=== PATIENT | male | born 1985 | race Hispanic/Latino ===

== ENCOUNTER 2022-09-06 21:55 | Emergency (ER) | payer SELFPAY ==
--- OUTSIDE RECORDS SUMMARY | 2022-09-06 21:58 | XMS REPORT | Continuity of Care Document ---
:1985 Author Organization [facility] t Address [address] [place] [address] Care Team Providers Name Role Phone Lab, [facility] Fam Pob I Attending Clinician Unavailable Shira Omer Attending Clinician SHIRA LIRIANO Attending Clinician Unavailable Problems This patient has no known problems. Allergies, Adverse Reactions, Alerts Allergy Allergy Status Severity Reaction(s) Onset Inactive Treating Comm ents Source Name Type Date Date Clinician NO KNOWN Drug Active [facility] ALLERGIE Class ity [facility] Social History Social Habit Start Date Stop Date Quantity Comments Source [facility] to [facility] Smoking Status Start Date Stop Date Source Unknown if ever [facility] Medications This patient has no known medications. Procedures This patient has no known procedures. Encounters Start End Encounter Admission Attending Care Care Encounter Source Date/Time Date/Time Type Type Clinicians Facility Department ID 2020-03-19 2020-03-19 Laboratory Lab, [facility] Fam Pob I [facility] [id number] Univers 13:14:38 13:34:38 Only Shira Liriano [facility] [id number] [facility] [id number] Jayme as Professio [phone] De dical nal [address] 2020-03-19 2020-03-19 Outpatient R AROLDO [facility] [id number] Univers 13:00:00 13:00:00 SHIRA france [facility] Results This patient has no known results.
[2022-09-06] MEDS ORDERED: NA CHLORIDE 0.9% 1,000 ML ONE (22:22)
[2022-09-06 22:41] LABS: Hematocrit 41.1 % (39.6-49.0); Lymphocytes % 35.6 % (15.3-44.8); MCV 92.6 fL (80-100); RBC Red Blood Cell Count 4.44 M/uL (4.33-5.43)
[2022-09-06 22:55] LABS: Albumin 3.9 g/dL (3.4-5.0); Bilirubin Total 0.2 mg/dL (0.2-1.0); Magnesium 1.8 mg/dL (1.6-2.4); Protein, Total 6.9 g/dL (6.4-8.2); Troponin High Sensitivity 6.2 pg/mL (<58.9)
[2022-09-06] MEDS ORDERED: POTASSIUM CL SA 10 MEQ TAB PO ONE (23:10)
--- NOTE | 2022-09-06 23:27 | ER ---
Nurse's Notes [facility] Name: Guru Lubin Age: 37 yrs Sex: Male : 1985 Arrival Date: 09/06/2022 Time: 21:56 Bed 4 Private MD: Diagnosis: Episodic lightheadedness;Hypokalemia Presentation: 09/06 22:01 Chief complaint: Patient states: WAS OUTSIDE HITTING GOLF BALLS IN HIS BACKYARD AND jj7 JUST STARTED FEELING DIZZY, LIGHT HEADED AND SHAKY. TACHYCARDIA. THINKS HIS BLOOD SUGAR MIGHT BE LOW. Coronavirus screen: At this time, the client does not indicate any symptoms associated with coronavirus-19. Ebola Screen: No symptoms or risks identified at this time. Initial Sepsis Screen: Does the patient meet any 2 criteria? HR > 90 bpm. No. Patient's initial sepsis screen is negative. Does the patient have a suspected source of infection? No. Patient's initial sepsis screen is negative. Risk Assessment: Do you want to hurt yourself or someone else? Patient reports no desire to harm self or others. Onset of symptoms. Onset of symptoms was September 06, 2022. 22:01 Method Of Arrival: Ambulatory [facility] 22:01 Acuity: NADIA 3 jj7 Triage Assessment: 22:06 General: Appears in no apparent distress. comfortable, Behavior is calm, cooperative, jj7 appropriate for age. Pain: Denies pain. Neuro: Reports dizziness, SHAKINESS. Historical: - Allergies: 22:06 No Known Allergies; jj7 - PMHx: 22:06 None; jj7 - PSHx: 22:06 None; jj7 - Social history:: Smoking status: Patient denies any tobacco usage or history of. Patient uses alcohol, occasionally. WEED, Patient/guardian denies using. Screenin:25 [facility] ED Fall Risk Assessment (Adult) History of falling in the last 3 months, kd3 including since admission No falls in past 3 months (0 pts) Confusion or Disorientation No (0 pts) Intoxicated or Sedated No (0 pts) Impaired Gait No (0 pts) Mobility Assist Device Used No (0 pt) Altered Elimination No (0 pt) Score/Fall Risk Level 0 - 2 = Low Risk. Humpty Dumpty Scale Fall Assessment Tool (age< 18yrs) Age 13 years and above (1 pt) Gender Male (2 pts) Diagnosis Other diagnosis (1 pt) Cognitive Impairments Oriented to own ability (1 pt) Environmental Factors Patient placed in bed (2 pts) Response to Surgery/Sedation/Anesthesia More than 48 hours/ None (1 pt) Medication Usage Other medications/ None (1 pt) Fall Risk Score/ Level Low Fall Risk: </= 11 points. Abuse screen: Denies threats or abuse. Denies injuries from another. Nutritional screening: No deficits noted. Tuberculosis screening: No symptoms or risk factors identified. Fall Risk No fall in past 12 months (0 pts). No secondary diagnosis (0 pts). IV access (20 points). Ambulatory Aid- None/Bed Rest/Nurse Assist (0 pts). Gait- Normal/Bed Rest/Wheelchair (0 pts) Mental Status- Oriented to own ability (0 pts). Total Hill Fall Scale indicates No Risk (0-24 pts). Assessment: 22:24 General: Appears in no apparent distress. Behavior is calm, cooperative. Neuro: Level kd3 of Consciousness is awake, alert, obeys commands, Oriented to person, place, time, situation. Cardiovascular: Capillary refill < 3 seconds in bilateral fingers Patient's skin is warm and dry. Rhythm is sinus rhythm. Respiratory: Airway is patent Trachea midline Respiratory effort is even, unlabored, Respiratory pattern is regular, symmetrical. 22:42 Reassessment: No changes from previously documented assessment. Patient and/or family kd3 updated on plan of care and expected duration. Pain level reassessed. Patient is alert, oriented x 3, equal unlabored respirations, skin warm/dry/pink. 23:41 Reassessment: Patient appears in no apparent distress at this time. Patient and/or jb4 family updated on plan of care and expected duration. Pain level reassessed. Patient is alert, oriented x 3, equal unlabored respirations, skin warm/dry/pink. Vital Signs: 22:01 BP 142 / 92; Pulse 105; Resp 20; Temp 98.7; Pulse Ox 99% ; Weight 89.36 kg; Height 5 jj7 ft. 11 in. (180.34 cm); Pain 0/10; 22:18 BP 119 / 77 LA Supine (auto/); Pulse 95; Resp 18; Pulse Ox 100% on R/A; jb4 22:19 BP 128 / 80 LA Sitting (auto/); Pulse 93; Resp 18; Pulse Ox 100% on R/A; jb4 22:20 BP 130 / 80 LA Standing (auto/); Pulse 90; Resp 18; Pulse Ox 100% on R/A; jb4 22:42 BP 119 / 90; Pulse 92; Resp 19; Pulse Ox 99% on R/A; kd3 23:30 BP 108 / 69; Pulse 86; Resp 16; Pulse Ox 99% on R/A; jb4 22:01 Body Mass Index 27.48 (89.36 kg, 180.34 cm) jj7 ED Course: 21:56 Patient arrived in ED. jj6 22:06 Triage completed. jj7 22:06 Arm band placed on right wrist. jj7 22:08 Fay Duran MD is Attending Physician. sd2 22:21 Ursula Coelho, RN is Primary Nurse. kd3 22:23 Troponin High Sensitivity Sent. kd3 22:23 Magnesium Sent. kd3 22:23 CBC with Diff Sent. kd3 22:23 CMP Sent. kd3 22:24 Inserted saline lock: 18 gauge in right antecubital area, using aseptic technique. kd3 Blood collected. 22:25 Patient has correct armband on for positive identification. Placed in gown. Bed in low kd3 position. Call light in reach. Client placed on continuous cardiac and pulse oximetry monitoring. NIBP monitoring applied. linux engineer on. 22:25 No provider procedures requiring assistance completed. kd3 22:54 XRAY Chest (1 view) In Process Unspecified. EDMS 23:42 IV discontinued, intact, bleeding controlled, No redness/swelling at site. Pressure jb4 dressing applied. Administered Medications: 22:28 Drug: NS 0.9% 1000 ml Route: IV; Rate: 1 bolus; Site: right antecubital; jb4 23:15 Follow up: Response: No adverse reaction; IV Status: Completed infusion; IV Intake: jb4 1000ml 23:10 Drug: Potassium Chloride 40 mEq Route: PO; jb4 23:44 Follow up: Response: No adverse reaction jb4 Medication: 22:25 VIS not applicable for this client. kd3 Intake: 23:15 IV: 1000ml; Total: 1000ml. jb4 Outcome: 23:27 Discharge ordered by . sd2 23:42 Discharged to home ambulatory, with family. jb4 23:42 Condition: stable 23:42 Discharge instructions given to patient, Instructed on discharge instructions, follow up and referral plans. Demonstrated understanding of instructions, follow-up care. 23:44 Patient left the ED. jb4 Signatures: Dispatcher [employer] EDMS Manny Briones, RN RN jb4 Ana Flanagna jj6 Ursula Coelho RN RN kd3 Fay Duran MD MD sd2 Jayden Yu RN RN jj7
--- NOTE | 2022-09-06 23:27 | EDPHYS ---
Physician Documentation [facility] Name: Guru Lubin Age: 37 yrs Sex: Male : 1985 Arrival Date: 09/06/2022 Time: 21:56 Bed 4 Private MD: ED Physician Fay Duran HPI: 09/06 22:18 This 37 yrs old Male presents to ER via Ambulatory with complaints of sd2 Electrocution, Dizziness, Irregular Pulse. 22:18 37 yo M presents with CC of lightheadedness and dizziness that started this evening sd2 while he was outside swinging a golf club and hitting balls. Reports he thought his blood sugar might be low because he quit eating sugar back in January and ate something but did not feel any better. States it felt different than his normal anxiety but his chest felt tight and he had some numbness and tingling in his hands and "I just feel off." Denies any fever or recent illness. States his hydration has not been as good as it should be recently as well. Denies associated nausea, vomiting or diaphoresis. No prior cardiac history. Non-smoker. Pt did report to triage that he said he was electrocuted but this did not actually occur. He states he said this so that he could be brought back from triage quicker. . Historical: - Allergies: 22:06 No Known Allergies; jj7 - PMHx: 22:06 None; jj7 - PSHx: 22:06 None; jj7 - Social history:: Smoking status: Patient denies any tobacco usage or history of. Patient uses alcohol, occasionally. WEED, Patient/guardian denies using. ROS: 22:18 Constitutional: Negative for fever, chills, and weight loss, Eyes: Negative for injury, sd2 pain, redness, and discharge, Cardiovascular: Negative for chest pain, palpitations, and edema, Positive for chest tightness Respiratory: Negative for shortness of breath, cough, wheezing. Abdomen/GI: Negative for abdominal pain, nausea, vomiting, diarrhea. MS/Extremity: Negative for injury and deformity, Skin: Negative for injury, rash, and discoloration, Neuro: Negative for headache, Positive for numbness and tingling. Exam: 22:18 Constitutional: This is a well developed, well nourished patient who is awake, alert, sd2 and in no acute distress. Head/Face: Normocephalic, atraumatic. Eyes: EOMI, normal conjunctiva bilaterally Chest/axilla: Normal chest wall appearance and motion. Nontender with no deformity. Cardiovascular: Regular rate and rhythm with a normal S1 and S2. No gallops, murmurs, or rubs. 2+ distal pulses. Respiratory: Lungs have equal breath sounds bilaterally, clear to auscultation and percussion. No rales, rhonchi or wheezes noted. No increased work of breathing, no retractions or nasal flaring. Abdomen/GI: Soft, non-tender, with normal bowel sounds. No guarding or rebound. No evidence of tenderness throughout. Skin: Warm, dry with normal turgor. Normal color with no rashes, no lesions, and no evidence of cellulitis. MS/ Extremity: Pulses equal, no cyanosis. Neurovascular intact. Full, normal range of motion. Ambulatory without difficulty. Psych: Awake, alert, with orientation to person, place and time. Behavior, mood, and affect are within normal limits. 22:18 ECG was reviewed by the Attending Physician. NSR with sinus arrhythmia, rate 94, no sd2 STEMI criteria Vital Signs: 22:01 BP 142 / 92; Pulse 105; Resp 20; Temp 98.7; Pulse Ox 99% ; Weight 89.36 kg; Height 5 j7 ft. 11 in. (180.34 cm); Pain 0/10; 22:18 BP 119 / 77 LA Supine (auto/); Pulse 95; Resp 18; Pulse Ox 100% on R/A; jb4 22:19 BP 128 / 80 LA Sitting (auto/); Pulse 93; Resp 18; Pulse Ox 100% on R/A; jb4 22:20 BP 130 / 80 LA Standing (auto/); Pulse 90; Resp 18; Pulse Ox 100% on R/A; jb4 22:42 BP 119 / 90; Pulse 92; Resp 19; Pulse Ox 99% on R/A; kd3 23:30 BP 108 / 69; Pulse 86; Resp 16; Pulse Ox 99% on R/A; jb4 22:01 Body Mass Index 27.48 (89.36 kg, 180.34 cm) [facility] MDM: 22:17 Patient medically screened. sd2 22:18 Differential diagnosis: Differential diagnosis includes but is not limited to: ACS, sd2 DVT/PE, pneumothorax, dissection, musculoskeletal, anxiety, anemia, electrolyte abnormality, pneumonia, CHF, COPD among others. Data reviewed: vital signs, nurses notes. 23:24 Data reviewed: lab test result(s), EKG, radiologic studies. Counseling: I had a sd2 detailed discussion with the patient and/or guardian regarding: the historical points, exam findings, and any diagnostic results supporting the discharge/admit diagnosis, lab results, radiology results, the need for outpatient follow up, to return to the emergency department if symptoms worsen or persist or if there are any questions or concerns that arise at home. Medical screen evaluation completed. EMTALA emergency medical condition absent. ED course: Labs and imaging reviewed. Hypokalemia present and replaced orally. Otherwise grossly WNCL. Trop neg. EKG with no ischemic changes. CXR with no acute process. No events noted on telemetry throughout stay. HR and VS improved. Pt resting comfortably. Possibly anxiety. Discussed results with patient and at BS. Verbalizes understanding of strict return precautions and is comfortable with treatment plan at this time.. 09/06 22:18 Order name: CBC with Diff; Complete Time: 22:58 sd2 09/06 22:18 Order name: CMP; Complete Time: 22:58 sd2 09/06 22:18 Order name: Magnesium; Complete Time: 22:58 sd2 09/06 22:18 Order name: Troponin High Sensitivity; Complete Time: 22:58 sd2 09/06 22:18 Order name: XRAY Chest (1 view) sd2 09/06 22:18 Order name: EKG - Nurse/Tech; Complete Time: 22:19 sd2 09/06 22:18 Order name: Orthostatics; Complete Time: 22:28 sd2 Administered Medications: 22:28 Drug: NS 0.9% 1000 ml Route: IV; Rate: 1 bolus; Site: right antecubital; jb4 23:15 Follow up: Response: No adverse reaction; IV Status: Completed infusion; IV Intake: jb4 1000ml 23:10 Drug: Potassium Chloride 40 mEq Route: PO; jb4 23:44 Follow up: Response: No adverse reaction jb4 Disposition Summary: 09/06/22 23:27 Discharge Ordered Location: Home sd2 Problem: new sd2 Symptoms: have improved sd2 Condition: Stable sd2 Diagnosis - Episodic lightheadedness sd2 - Hypokalemia sd2 Followup: sd2 - With: Private Physician - When: 2 - 3 days - Reason: Recheck today's complaints, Continuance of care, Re-evaluation by your physician Discharge Instructions: - Discharge Summary Sheet sd2 - Dizziness sd2 - Hypokalemia sd2 Forms: - Medication Reconciliation Form sd2 - Thank You Letter sd2 - Antibiotic Education sd2 - Prescription Opioid Use sd2 Signatures: Dispatcher [employer] EDManny Byers, RN RN jb4 Fay Duran MD MD sd2 Jayden Yu RN RN jj7 Corrections: (The following items were deleted from the chart) 22:23 22:18 37 yo M presents with CC of lightheadedness and dizziness that started this sd2 evening while he was outside swinging a golf club and hitting balls. Reports he thought his blood sugar might be low because he quit eating sugar back in January and ate something but did not feel any better. States it felt different than his normal anxiety but his chest felt tight and he had some numbness and tingling in his hands and "I just feel off." Denies any fever or recent illness. States his hydration has not been as good as it should be recently as well. Denies associated nausea, vomiting or diaphoresis. No prior cardiac history. Non-smoker.. sd2
[2022-09-07 00:39] VITALS: TEMP 98.7
[2022-09-07 00:43] VITALS: O2SAT 99
[2022-09-07 00:44] VITALS: BP 108/69
--- NOTE | 2022-09-07 11:00 | RAD REPORT ---
EXAM DESCRIPTION: Single view AP chest radiograph(s) CLINICAL HISTORY: CHEST PAIN. COMPARISON: None. TECHNIQUE: Single view AP chest radiograph(s). FINDINGS: The lungs are clear. No pulmonary infiltrate or edema identified. No pleural effusion. N o pneumothorax. Nonenlarged cardiomediastinal silhouette. No significant osseous abnormality. IMPRESSION: No acute cardiopulmonary abnormality identified by radiograph. Electronically signed by: Jaci Garvey MD 09/06/2022 11:05 PM [employer]SEM[employer]ER Due to temporary technical issues with the PACS/Fluency reporting system, reports are being signed by the in house radiologists without review as a courtesy to insure prompt reporting. The interpreting radiologist is fully responsible for the content of the report.
--- NOTE | 2022-09-07 13:59 | EKG ---
Test Date: 2022-09-06 Test Time: 22:14:30 Apprentice Carpenter: CASTILLO MEASUREMENT RESULTS: Intervals: Rate: 94 PA: 192 QRSD: 116 QT: 340 QTc: 425 [place]: P: 49 PA: 192 QRS: 89 T: 61 INTERPRETIVE STATEMENTS: Normal sinus rhythm with sinus arrhythmia Normal ECG No previous ECG available for comparison Electronically Signed On 09-07-22 13:58:26 PAVING INSPECTOR by Jesus Duke
== END 2022-09-06 23:44 | disposition home or self-care (01) ==
LOC: ER 21:55
DX: E87.6 Hypokalemia (principal)
CPT/HCPCS: 36415; 71045; 80053; 83735; 84484; 85025; 93005; 96360; 99284; J7030

== ENCOUNTER 2023-12-07 12:27 | Observation (INO) | payer SELFPAY ==
--- OUTSIDE RECORDS SUMMARY | 2023-12-07 12:30 | XMS REPORT | Continuity of Care Document ---
Author Name Unknown Address [address] [place] [address] [facility] thconnect Address [address] [place] [address] Care Team Providers Care Macadam Raker Name Role Phone Shira Omer Primary Care Physician + [phone] [email or web address] Attending Clinician Unavailable Palmer Talley MD Attending Clinician Unavailable Jyoti Whittaker CMA Attending Clinician Unavailable Doctor Unassigned, [place] Attending Clinician U navailable Lab, Adc Fam Pob I Attending Clinician Unavailab Shira Garcia Attending Clinician [phone] SHIRA KENDRICK Attending Clinician Unavailable Palmer Talley MD Unavailable Unavailable Payers Payer Name Policy Type Policy Number Effective Date Expirati on Date Source Self Pay P [id number] 2022 00:00:00 Self Pay P [id number] 2022 00:00:00 2022 00:00:00 Problems Condition Name Condition Details Condition Category Status Onset Date Resolution Date Last Treatment Date Treating Clinician Comments Source Elevated blood pressure w/o hypertensi on Condition Active 09-23 00:00: 00 2022-09-23 16:05:00 Palmer Talley [facility] Hypokalemi a Condition Active 09-23 00:00: 00 2022-09-23 16:05:00 Palmer Talley [facility] Medicin e Overweight Condition Active 09-23 00:00: 00 2022-09-23 16:05:00 Palmer Talley [facility] Adult Medicin e Allergies, Adverse Reactions, Alerts Allergy Name Allergy Type Status Severity Reaction(s) Onset Date Inactive Date Treating Clinician Comments Source NO KNOWN ALLERGIE S Drug Class Active [facility] Social History Social Habit Start Date Stop Date Quantity Comments Source Sexual orientation U [facility] is there any chance that you could be ? 2022-09-23 09:18:20 2022-09-23 09:18:20 No [facility] PHQ2 Questionairre Score 2022-09-23 09:18:20 2022-09-23 09:18:20 [facility] drug use 2022-09-23 09:18:20 2022-09-23 09:18:20 Currently [facility] alcohol use 2022-09-23 09:18:20 2022-09-23 09:18:20 Currently [facility] if the patient is using/has used a vaping item, Current, Former, Never Used, Not asked 2022-09-23 09:18:20 2022-09-23 09:18:20 No [facility] sexual orientation 2022-09-23 09:18:20 2022-09-23 09:18:20 Straight or heterosexual [facility] condom use 2022-09-23 09:18:20 2022-09-23 09:18:20 Never [facility] total number of lifetime sexual partners 2022-09-23 09:18:20 2022-09-23 09:18:20 > 20 [facility] number of sexual partners in last year 2022-09-23 09:18:20 2022-09-23 09:18:20 [facility] Ever had sexual intercourse? 2022-09-23 09:18:20 2022-09-23 09:18:20 Yes [facility] Exposure to SARS-CoV-2 (event) 2020-02-18 00:00:00 2020-03-19 13:16:00 Yes [facility] Sex Assigned At 1985 00:00:00 1985 00:00:00 [facility] Smoking Status Start Date Stop Date Source Tobacco smoking consumption unknown [facility] Never smoked tobacco (finding) [facility] Vital Signs Vital Name Observation Time Observation Value Comments S ource temperature E&M 2022-09-23 09:18:20 98.3 [degF] [facility] Diastolic blood pressure 2022-09-23 09:18:20 83 mm[Hg] [facility] [employer] Systolic blood pressure 2022-09-23 09:18:20 134 mm[Hg] [facility] [employer] pulse rate 2022-09-23 09:18:20 71 /min [facility] temperature site 2022-09-23 09:18:20 oral [facility] BMI (body mass index) percentile 2022-09-23 09:18:20 n/a [facility] [employer] Body Mass Index (Ratio) 2022-09-23 09:18:20 27.59 kg/m2 [facility] [employer] height in centimeters E&M 2022-09-23 09:18:20 180.34 cm [facility] [employer] weight E&M 2022-09-23 09:18:20 197.13 [lb_av] [facility] weight in kilograms E&M 2022-09-23 09:18:20 89.60 kg [facility] [employer] Procedures Procedure Date / Time Performed Performing Clinicia n Source Most recent diastolic blood pressure 80-89 mm Hg 2022-09-23 09:45:[facility] Most recent systolic blood pressure 130 - 139 mm Hg 2022-09-23 09:45:17 Palmer Talley [facility] Encounters Start Date/Time End Date/Time Encounter Type Admission Type Attending Clinicians Care Facility Care Department Encounter ID Source 2022-12-21 14:29:04 Outpatient alejandrina JIMÉNEZ [facility] [id number] [facility] 2022-09-26 09:35:18 Outpatient lc.edna [facility] [id number] [facility] 2022-09-20 15:50:07 Outpatient lc.edna [facility] [id number] [facility] 2022-09-07 15:49:07 Outpatient lc.edna [facility] [id number] [facility] 2022-09-23 00:00:00 2022-09-23 00:00:00 In-person encounter Palmer Talley, Jyoti [facility] Adult Medicine [id number] [facility] 2020-03-21 00:00:00 2020-03-21 00:00:00 Patient Secure Msg Doctor Unassigned, [place] BRAVO KUMAR [id number] [facility] 2020-03-19 13:14:38 2020-03-19 13:34:38 Laboratory Only Lab, Adc Fam Pob Shira Avila [facility] Office [facility] One [id number] [facility] 2020-03-19 13:00:00 2020-03-19 13:00:00 Outpatient SHIRA SALES [facility] [id number] [facility]
[2023-12-07 12:49] LABS: Absolute Basophils 0.1 K/uL (0-0.5); Absolute Eosinophils 0.1 K/uL (0-0.5); Absolute Monocytes 0.6 K/uL (0.1-1.3); Absolute Neutrophil 3.7 K/uL (1.8-8.0); Basophils % 0.8 % (0-1.3); Eosinophils % 1.9 % (0-4.4); Hematocrit 45.5 % (39.6-49.0); Hemoglobin 15.6 g/dL (13.6-17.9); Lymphocytes % 39.8 % (15.3-44.8); MCH 32.2 pg (27.0-35.0); MCHC 34.3 g/dL (32.0-36.0); Monocytes % 8.1 % (3.3-12.3); Neutrophils % 49.4 % (41.7-73.7); Nucleated Red Blood Cells % 0.1 % (0-0); Platelets 282 thou/uL (152-406); RBC Red Blood Cell Count 4.84 M/uL (4.33-5.43); Red Cell Distribution Width 13.5 % (12.1-15.2)
[2023-12-07] MEDS ORDERED: NA CHLORIDE 0.9% 500 ML ONE (12:51)
[2023-12-07 12:57] LABS: PT Prothrombin Time 11.2 SECONDS (9.5-12.5); Protime INR 1.02
[2023-12-07 13:15] LABS: ALT/SGPT 34 U/L (16-61); AST/SGOT 23 U/L (15-37); Albumin 4.3 g/dL (3.4-5.0); Albumin/Globulin Ratio 1.2 (1.1-1.8); Alkaline Phosphatase 77 U/L (45-117); Anion Gap 5.5 mEq/L (5.0-15.0); BUN Blood Urea Nitrogen 21 mg/dL (7-18); Bicarbonate 27 mEq/L (21-32); Bilirubin Direct 0.1 mg/dL (0-0.2); Bilirubin Indirect, Calculated 0.4 mg/dL (0.2-0.8); Bilirubin Total 0.5 mg/dL (0.2-1.0); Globulin 3.5 g/dL (2.3-3.5); Glomerular Filtration Rate 77 ml/min (=/>90); Glucose Level 107 mg/dL (74-106); Magnesium 2.1 mg/dL (1.6-2.4); NT PRO-BNP 42 pg/mL (<125); Potassium 3.5 mEq/L (3.5-5.1); Protein, Total 7.8 g/dL (6.4-8.2); Sodium Level 138 mEq/L (136-145)
[2023-12-07 13:37] LABS: Troponin High Sensitivity < 3.0 pg/mL (<58.9)
--- NOTE | 2023-12-07 13:42 | RAD REPORT ---
EXAM DESCRIPTION: Cindi Single View12/07/2023 1:24 pm CLINICAL HISTORY: Chest pain COMPARISON: 2021 FINDINGS: The lungs appear clear of acute infiltrate. The heart is normal size IMPRESSION: No acute abnormalities displayed
--- NOTE | 2023-12-07 15:02 | EDPHYS ---
Physician Documentation [facility] Name: Guru Lubin Age: 38 yrs Sex: Male : 1985 Arrival Date: 12/07/2023 Time: 12:27 Bed 6 Private MD: ED Physician Devin Alarcon HPI: 12/06 14:52 This 38 yrs old Male presents to ER via Ambulatory with complaints of jase Palpitations, High Blood Pressure. 14:52 The patient presents with a history of heart racing, heart skipping beats. Context: The jase symptoms occur with light activity, with strenuous activity. Onset: The symptoms/episode began/occurred just prior to arrival, 14 day(s) ago. Duration: The patient or guardian reports a single episode, that is now resolved. Modifying factors: The symptoms are aggravated by nothing. The symptoms are alleviated by nothing. Associated signs and symptoms: Pertinent positives: chest pain, lightheadedness, nausea. Severity of symptoms: At their worst the symptoms were mild moderate in the emergency department the symptoms have improved moderately, Pain is currently a 2 / 10. The patient has experienced similar episodes in the past, multiple times. Historical: - Allergies: 12:35 No Known Allergies; mb9 - Home Meds: 12:35 None [Active]; mb9 - PMHx: 12:35 None; mb9 - PSHx: 12:35 None; mb9 - Immunization history:: Adult Immunizations up to date. - Social history:: Smoking status: Patient denies any tobacco usage or history of. ROS: 14:54 Constitutional: Negative for fever, chills, and weight loss, Eyes: Negative for injury, jase pain, redness, and discharge, ENT: Negative for injury, pain, and discharge, Neck: Negative for injury, pain, and swelling, Respiratory: Negative for shortness of breath, cough, wheezing, and pleuritic chest pain, Abdomen/GI: Negative for abdominal pain, nausea, vomiting, diarrhea, and constipation, Back: Negative for injury and pain, : Negative for injury, bleeding, discharge, and swelling, MS/Extremity: Negative for injury and deformity, Skin: Negative for injury, rash, and discoloration, Neuro: Negative for headache, weakness, numbness, tingling, and seizure, Psych: Negative for depression, anxiety, suicide ideation, homicidal ideation, and hallucinations, Allergy/Immunology: Negative for hives, rash, and allergies, Endocrine: Negative for neck swelling, polydipsia, polyuria, polyphagia, and marked weight changes, Hematologic/Lymphatic: Negative for swollen nodes, abnormal bleeding, and unusual bruising, 14:54 Cardiovascular: Positive for chest pain, orthopnea, palpitations, 14:54 Respiratory: Positive for cough, Negative for sputum production, wheezing, acute changes, 14:54 MS/extremity: Negative for acute changes, swelling, tenderness, Exam: 14:54 Constitutional: This is a well developed, well nourished patient who is awake, alert, jase and in no acute distress. Head/Face: Normocephalic, atraumatic. Eyes: Pupils equal round and reactive to light, extra-ocular motions intact. Lids and lashes normal. Conjunctiva and sclera are non-icteric and not injected. Cornea within normal limits. Periorbital areas with no swelling, redness, or edema. ENT: Nares patent. No nasal discharge, no septal abnormalities noted. Tympanic membranes are normal and external auditory canals are clear. Oropharynx with no redness, swelling, or masses, exudates, or evidence of obstruction, uvula midline. Mucous membranes moist. Neck: Trachea midline, no thyromegaly or masses palpated, and no cervical lymphadenopathy. Supple, full range of motion without nuchal rigidity, or vertebral point tenderness. No Meningismus. Chest/axilla: Normal chest wall appearance and motion. Nontender with no deformity. No lesions are appreciated. Cardiovascular: Regular rate and rhythm with a normal S1 and S2. No gallops, murmurs, or rubs. Normal PMI, no JVD. No pulse deficits. Respiratory: Lungs have equal breath sounds bilaterally, clear to auscultation and percussion. No rales, rhonchi or wheezes noted. No increased work of breathing, no retractions or nasal flaring. Abdomen/GI: Soft, non-tender, with normal bowel sounds. No distension or tympany. No guarding or rebound. No evidence of tenderness throughout. Back: No spinal tenderness. No costovertebral tenderness. Full range of motion. Male : Normal genitalia with no discharge or lesions. Skin: Warm, dry with normal turgor. Normal color with no rashes, no lesions, and no evidence of cellulitis. MS/ Extremity: Pulses equal, no cyanosis. Neurovascular intact. Full, normal range of motion. Neuro: Awake and alert, GCS 15, oriented to person, place, time, and situation. Cranial nerves II-XII grossly intact. Motor strength 5/5 in all extremities. Sensory grossly intact. Cerebellar exam normal. Normal gait. Psych: Awake, alert, with orientation to person, place and time. Behavior, mood, and affect are within normal limits. 14:54 ECG was reviewed by the Attending Physician. 14:54 Musculoskeletal/extremity: ROM: intact in all extremities, Circulation is intact in all extremities. Sensation intact. Compartment Syndrome exam of affected extremity: is normal. Weight bearing: is unable to bear weight, DVT Exam: No signs of deep vein thrombosis. no pain, no swelling, no tenderness, negative Homans' sign noted on exam, no appreciated bluish discoloration, no erythema, no increased warmth, Vital Signs: 12:33 BP 149 / 87; Pulse 69; Resp 18; Temp 98; Pulse Ox 100% on R/A; Weight 88.45 kg; Height mb9 6 ft. 0 in. ; Pain 0/10; 12:44 BP 133 / 81; Pulse 71; Resp 18; Pulse Ox 100% on R/A; mb9 13:58 BP 133 / 76 Supine; Pulse 63; rs5 14:00 BP 134 / 82 Sitting; Pulse 66; rs5 14:02 BP 137 / 80 Standing; Pulse 61; rs5 14:06 BP 143 / 72; Pulse 62; Resp 18; Pulse Ox 100% on R/A; rs5 12:33 Body Mass Index 26.45 (88.45 kg, 182.88 cm) mb9 12:33 Pain Scale: Adult mb9 MDM: 12:36 Patient medically screened. jase 15:03 AYDEE Risk Score: not applicable, 1- Known CAD, 1 - ASA use in past 7 days, 1 - Recent jase [<24hrs] Severe Angina, 1 - Elevated Cardiac Markers, 1 - ST deviation >0.5mm, Not Applicable. 1 - 3 or more CAD risk factors. Differential diagnosis: abnormal EKG, acute myocardial infarction, acute pericarditis, anxiety, coronary artery disease chest wall pain, congestive heart failure cholecystitis, Cholelithiasis costochondritis, arrythmia, dehydration, stress disorder, esophagitis, gastritis, gastroesophageal reflux disease (GERD). Data reviewed: vital signs, nurses notes, lab test result(s), EKG, radiologic studies, plain films. Consideration of Admission/Observation Escalation of care including admission/observation considered. 12/06 12:39 Order name: Basic Metabolic Panel; Complete Time: 14:42 [facility] 12/06 12:39 Order name: CBC with Diff; Complete Time: 14:42 [facility] 12/06 12:39 Order name: LFT's; Complete Time: 14:42 [facility] 12/06 12:39 Order name: Magnesium; Complete Time: 14:42 [facility] 12/06 12:39 Order name: NT PRO-BNP; Complete Time: 14:42 [facility] 12/06 12:39 Order name: PT-INR; Complete Time: 14:42 [facility] 12/06 12:39 Order name: Troponin HS; Complete Time: 14:42 [facility] 12/06 12:39 Order name: Urinalysis w/ reflexes 12/06 12:39 Order name: UDS [facility] 12/06 12:39 Order name: TSH; Complete Time: 14:42 [facility] 12/06 12:39 Order name: XRAY Chest (1 view); Complete Time: 14:42 [facility] 12/06 12:39 Order name: EKG; Complete Time: 12:40 [facility] 12/06 12:39 Order name: Cardiac monitoring; Complete Time: 12:43 [facility] 12/06 12:39 Order name: EKG - Nurse/Tech; Complete Time: 12:45 [facility] 12/06 12:39 Order name: IV Saline Lock; Complete Time: 12:43 [facility] 12/06 12:39 Order name: Labs collected and sent; Complete Time: 12:43 [facility] 12/06 12:39 Order name: O2 Per Protocol; Complete Time: 12:43 [facility] 12/06 12:39 Order name: O2 Sat Monitoring; Complete Time: 12:43 [facility] 12/06 12:51 Order name: Orthostatics; Complete Time: 14:04 [facility] EC:54 Rate is 67 beats/min. QRS [place] is Normal. [place] interval is normal. QRS interval is jase normal. QT interval is normal. No Q waves. T waves are Normal. No ST changes noted. Clinical impression: Normal ECG, NSR w/ Non-specific ST/T Changes, and No evidence of ischemia. Interpreted by me. Reviewed by me. Administered Medications: 12:51 Not Given (Duplicate Order): [id number] mg PO once jase 13:06 Drug: NS 0.9% IV 500 ml IV at bolus once Route: IV; Rate: bolus; Site: right iw antecubital; 16:46 Drug: Enoxaparin Sub-Q 1 mg/kg Sub-Q once Route: Sub-Q; Site: abdomen; ld1 16:46 Drug: Famotidine IVP 20 mg IVP once; dilute with 10 mL 0.9% NaCl; give over 2 minutes ld1 Route: IVP; Site: right antecubital; 16:46 Drug: Aspirin PO Chewable Tablet 324 mg PO once; 81 mg tablets x 4 Route: PO; ld1 Disposition Summary: 12/07/23 15:02 Hospitalization Ordered Notes: Hospitalization Status: Observation jase Provider: Elie Lange cha Location: Telemetry/MedSurg (observation) jase Condition: Fair jase Problem: new jase Symptoms: have improved jase Bed/Room Type: Standard jase Room Assignment: 421(12/07/23 16:23) aa5 Diagnosis - Palpitations jase - Dyspnea jase - Angina pectoris, unspecified jase - Bradycardia, unspecified jase - Syncope Near jase - Weakness jase Forms: - Medication Reconciliation Form jase - SBAR form jase - Leadership Thank You Letter jase Signatures: Dispatcher [employer] Devin Lee MD MD cha Williams, Irene RN Yenni Hurtado RN RN aa5 Priscilla Quintero RN RN ld1 Jeanie Palacios RN RN mb9 Corrections: (The following items were deleted from the chart) 16:23 15:02 jase aa5
--- NOTE | 2023-12-07 15:02 | ER ---
Nurse's Notes [facility] Name: Guru Lubin Age: 38 yrs Sex: Male : 1985 Arrival Date: 12/07/2023 Time: 12:27 Bed 6 Private MD: Diagnosis: Palpitations;Dyspnea;Angina pectoris, unspecified;Bradycardia, unspecified;Syncope Near;Weakness Presentation: 12/06 12:33 Chief complaint: Patient states: "A couple hours ago, my watch start my HR was low at mb9 48 and BP was 165/80. All week I pain a stretching pain in my chest and just feel off". Coronavirus screen: Vaccine status: Patient reports being unvaccinated. Ebola Screen: No symptoms or risks identified at this time. Initial Sepsis Screen: Does the patient meet any 2 criteria? No. Patient's initial sepsis screen is negative. Does the patient have a suspected source of infection? No. Patient's initial sepsis screen is negative. Risk Assessment: Do you want to hurt yourself or someone else? Patient reports no desire to harm self or others. Onset of symptoms was December 07, 2023. 12:33 Method Of Arrival: Ambulatory mb9 12:33 Acuity: NADIA 3 mb9 Triage Assessment: 12:35 General: Appears in no apparent distress. Behavior is calm, cooperative. Pain: mb9 Complains of pain in chest. Cardiovascular: Reports palpitations. Respiratory: Airway is patent Respiratory effort is even, unlabored, Respiratory pattern is regular, symmetrical. GI: No signs and/or symptoms were reported involving the gastrointestinal system. : No signs and/or symptoms were reported regarding the genitourinary system. Derm: Skin is pink, warm \\T\\ dry. Musculoskeletal: Range of motion: intact in all extremities. Historical: - Allergies: 12:35 No Known Allergies; mb9 - Home Meds: 12:35 None [Active]; mb9 - PMHx: 12:35 None; mb9 - PSHx: 12:35 None; mb9 - Immunization history:: Adult Immunizations up to date. - Social history:: Smoking status: Patient denies any tobacco usage or history of. Screenin:35 [facility] ED Fall Risk Assessment (Adult) History of falling in the last 3 months, rs5 including since admission No falls in past 3 months (0 pts) Confusion or Disorientation No (0 pts) Intoxicated or Sedated No (0 pts) Impaired Gait No (0 pts) Mobility Assist Device Used No (0 pt) Altered Elimination No (0 pt) Score/Fall Risk Level 0 - 2 = Low Risk Oriented to surroundings, Maintained a safe environment. Abuse screen: Denies threats or abuse. Nutritional screening: No deficits noted. Tuberculosis screening: No symptoms or risk factors identified. Assessment: 12:35 General: Appears in no apparent distress. comfortable, Behavior is calm, cooperative. rs5 Pain: Denies pain. Neuro: Level of Consciousness is awake, alert, obeys commands, Oriented to person, place, time, situation. Cardiovascular: Patient's skin is warm and dry. Rhythm is regular. Cardiovascular: Reports since intermittent palpitations, provider notified. Respiratory: Airway is patent Respiratory effort is even, unlabored, Respiratory pattern is regular, symmetrical. GI: Abdomen is round non-distended, Abd is soft and non tender X 4 quads. : No signs and/or symptoms were reported regarding the genitourinary system. EENT: No signs and/or symptoms were reported regarding the EENT system. Derm: Skin is intact, Skin is dry, Skin is normal, Skin temperature is warm. Musculoskeletal: Circulation, motion, and sensation intact. Range of motion: intact in all extremities. 13:40 Reassessment: Patient and/or family updated on plan of care and expected duration. Pain rs5 level reassessed. Patient is alert, oriented x 3, equal unlabored respirations, skin warm/dry/pink. 13:40 Neuro: Denies dizziness. rs5 14:05 Reassessment: To bedside for orthostatics, pt denies dizziness or palpitations during rs5 orthostatics. 14:05 Cardiovascular: Rhythm is regular. rs5 Vital Signs: 12:33 BP 149 / 87; Pulse 69; Resp 18; Temp 98; Pulse Ox 100% on R/A; Weight 88.45 kg; Height mb9 6 ft. 0 in. ; Pain 0/10; 12:44 BP 133 / 81; Pulse 71; Resp 18; Pulse Ox 100% on R/A; mb9 13:58 BP 133 / 76 Supine; Pulse 63; rs5 14:00 BP 134 / 82 Sitting; Pulse 66; rs5 14:02 BP 137 / 80 Standing; Pulse 61; rs5 14:06 BP 143 / 72; Pulse 62; Resp 18; Pulse Ox 100% on R/A; rs5 12:33 Body Mass Index 26.45 (88.45 kg, 182.88 cm) mb9 12:33 Pain Scale: Adult mb9 ED Course: 12:30 Patient arrived in ED. mg5 12:31 Arm band placed on. mb9 12:35 Triage completed. mb9 12:35 Patient has correct armband on for positive identification. Placed in gown. Bed in low rs5 position. Call light in reach. Side rails up X2. 12:35 No provider procedures requiring assistance completed. rs5 12:36 Devin Alarcon MD is Attending Physician. jase 12:44 Basic Metabolic Panel Sent. mb9 12:44 CBC with Diff Sent. mb9 12:44 LFT's Sent. mb9 12:44 Magnesium Sent. mb9 12:44 NT PRO-BNP Sent. mb9 12:44 PT-INR Sent. mb9 12:44 Troponin HS Sent. mb9 12:44 Inserted saline lock: 18 gauge in right antecubital area, using aseptic technique. mb9 Blood collected. 12:44 TSH Sent. mb9 13:25 XRAY Chest (1 view) In Process Unspecified. EDMS 13:52 Donavan Abebe, YAHIR is Primary Nurse. rs5 15:00 Elie Lange MD is Hospitalizing Provider. [facility] 16:48 Provided Education on: need for admit. ld1 16:48 Patient admitted, IV remains in place. ld1 Administered Medications: 12:51 Not Given (Duplicate Order): [id number] mg PO once [facility] 13:06 Drug: NS 0.9% IV 500 ml IV at bolus once Route: IV; Rate: bolus; Site: right iw antecubital; 16:46 Drug: Enoxaparin Sub-Q 1 mg/kg Sub-Q once Route: Sub-Q; Site: abdomen; ld1 16:46 Drug: Famotidine IVP 20 mg IVP once; dilute with 10 mL 0.9% NaCl; give over 2 minutes ld1 Route: IVP; Site: right antecubital; 16:46 Drug: Aspirin PO Chewable Tablet 324 mg PO once; 81 mg tablets x 4 Route: PO; ld1 Medication: 14:08 VIS not applicable for this client. rs5 Outcome: 15:02 Decision to Hospitalize by Provider. jase 16:48 Admitted to ER Hold. Please see [facility] for further documentation. ld1 16:48 Condition: stable 16:48 Instructed on the need for admit, 17:52 Patient left the ED. cm12 Signatures: Dispatcher [employer] EDDevin Arechiga MD MD cha Williams, Irene, RN RN iw Priscilla Quintero RN RN ld1 Jeanie Palacios, RN RN mb9 Donavan Abebe RN RN rs5 Augustina Gant, COOKING CHEF COOKING CHEF cm12 Josephine Figueroa 5
--- NOTE | 2023-12-07 15:46 | P.HP ---
Certification for Inpatient Patient admitted to: Observation <Augustina Gant - Last Filed: 12/07/23 16:16> Patient History Date of Service: 12/07/23 Reason for admission: chest pain History of Present Illness: 38-year-old male with no significant past medical history presents to the emergency room with chest pains, palpitations. 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 He reports feeling palpitations, lightheaded over the past 2 to 3 weeks nothing, exacerbate symptoms, nothing makes it better, nothing makes it worse better symptoms usually resolve by themselves, with rest. No reported history of hypertension, hyperlipidemia, diabetes, no prior cardiac testing. No use of drugs or alcohol. No reported recent infection, fever, nausea vomiting diarrhea. Plan to admit for palpitations, dizziness. Cardiology to consult. EKG normal sinus rhythm rate 67, no ST elevation. Vital signs 149 / 87; Pulse 69; Resp 18; Temp 98; Pulse Ox 100% on R/A; Weight 88.45 kg; Height mb9 6 ft. 0 in. ; Pain 0/10; Home medications list reviewed: Yes - Past Medical/Surgical History Has patient received pneumonia vaccine in the past: No Diabetic: No Past Medical History: Patient denies medical history Past Surgical History: Patient denies surgical history - Social History Smoking Status: Never smoker Alcohol use: No CD- Drugs: No Caffeine use: Yes Place of Residence: Home <Augustina Gant - Last Filed: 12/07/23 16:16> Date of Service: 12/07/23 <Elie Lange - Last Filed: 12/07/23 17:35> Allergies No Known Allergies Allergy (Unverified 12/07/23 16:16) Review of Systems Per HPI <Augustina Gant - Last Filed: 12/07/23 16:16> Physical Examination - Physical Exam General: Alert, In no apparent distress, Oriented x3 HEENT: Atraumatic, Normocephalic Neck: Supple, JVD not distended Respiratory: Clear to auscultation bilaterally, Normal air movement Cardiovascular: Normal pulses, Regular rate/rhythm Capillary refill: <2 Seconds Gastrointestinal: Normal bowel sounds, Soft and benign Integumentary: No rashes, No breakdown Neurological: Normal speech, Normal strength at 5/5 x4 extr - Studies Laboratory Data (last 24 hrs) 12/07/23 12/07/23 12/07/23 12:42 12:42 12:42 WBC 7.40 Hgb 15.6 Hct 45.5 Plt Count 282 PT 11.2 INR 1.02 Sodium 138 Potassium 3.5 BUN 21 H Creatinine 1.23 Glucose 107 H Magnesium 2.1 Total Bilirubin 0.5 AST 23 ALT 34 Alkaline Phosphatase 77 <Augustina Gant - Last Filed: 12/07/23 16:16> - Studies Laboratory Data (last 24 hrs) 12/07/23 12/07/23 12/07/23 12:42 12:42 12:42 WBC 7.40 Hgb 15.6 Hct 45.5 Plt Count 282 PT 11.2 INR 1.02 Sodium 138 Potassium 3.5 BUN 21 H Creatinine 1.23 Glucose 107 H Magnesium 2.1 Total Bilirubin 0.5 AST 23 ALT 34 Alkaline Phosphatase 77 <NazarioFerniekeaton C - Last Filed: 12/07/23 17:35> Assessment and Plan - Plan Assessment plan Chest pain rule out CT Palpitations Dizziness, Cardiology consult, telemetry, Trend troponins, lipid panel, As needed analgesics, Acute kidney injury BUN 21, creatinine 1.23 Gentle IV fluids x 1 L Diet cardiac Full code DVT Lovenox Disposition Home, independent Discharge Plan: Home - Advance Directives Does patient have a Living Will: No Does patient have a Durable POA for Healthcare: No - Code Status/Comfort Care Code Status: Full Code Critical Care: No Time Spent Managing Pts Care (In Minutes): 65 <Augustina Gant - Last Filed: 12/07/23 16:16> - Plan Pt seen and examined. I agree withe note by the DOUBLER HELPER. Pt is a 38 yo male with no significant past medical history who presents with chest discomfort. It is located on the right chest wall/sternum, non-radiating, sharp and intermittent in nature with severity of 4/10. No thing makes it worse or better. Of note, pt had near syncope about 2 weeks ago while at work. On admission, lab studies show troponin <3, K 3.5 and cr 1.23. EKG shows normal sinus rhythm rate 67, no ST elevation. Pt denies any family history of CAD. At bedside, pt is in NAD. ROS is unremarkable excpet intermittent chest pain. A/P: Chest pain: Will r/o ACS. troponin is <3. Will trend troponin Q6h. Will keep pt NPO after midnight for NM stress test. Consulted Cardiology. WANDA: Cr is 1.23. Will continue IVF, avoid nephrotoxins and monitor renal function. DVT ppx: heparin Code: full <Elie Lange - Last Filed: 12/07/23 17:35>
[2023-12-07] MEDS ORDERED: ACETAMINOPHEN 500 MG TAB PO PRN (16:16)
[2023-12-07] MEDS ORDERED: MORPHINE 2 MG/ML SYR IV PRN (16:16)
[2023-12-07] MEDS ORDERED: ONDANSETRON 4 MG/2 ML VIAL IV PRN (16:16)
[2023-12-07] MEDS ORDERED: ENOXAPARIN 80 MG/0.8 ML SQ ONE (16:24)
[2023-12-07] MEDS ORDERED: ASPIRIN 81 MG CHEWABLE TABLET ONE (16:25)
[2023-12-07 16:48] LABS: Specific Gravity 1.017 (1.005-1.030); Sqamous Epithelial None Seen /HPF (None Seen); Urine Bacteria None Seen /HPF (<20); Urine Bilirubin NEGATIVE (Negative); Urine Blood Negative (Negative); Urine Clarity Clear (Clear); Urine Color Light-Yellow (Yellow); Urine Culture Reflex Order NOT NEEDED; Urine Glucose NEGATIVE (Negative); Urine Ketones NEGATIVE (Negative); Urine Microscopic Reflex YN ORDER UMIC; Urine Mucus Slight /HPF (None Seen); Urine Nitrite NEGATIVE (Negative); Urine Protein NEGATIVE (Negative); Urine RBC <5 /HPF (None Seen); Urine Urobilinogen Normal (Normal); Urine WBC <5 /HPF (<5); Urine pH 6.5 (5.0-7.0)
[2023-12-07 16:54] LABS: Barbiturates NEGATIVE (NEGATIVE); Benzodiazepines NEGATIVE (NEGATIVE); Cocaine NEGATIVE (NEGATIVE); METHAMPHETAM NEGATIVE (NEGATIVE); Methadone NEGATIVE (NEGATIVE); Opiates NEGATIVE (NEGATIVE); Phencyclidine NEGATIVE (NEGATIVE); THC Cannibis POSITIVE (NEGATIVE)
--- NOTE | 2023-12-07 17:14 | P.CNS ---
Date of Consult: 12/07/23 Chief Complaint: chest pain History of Present Illness: Patient with NO significant PMH presented with dizziness, fatigue, not feeling right and high blood pressure, also he mention that he started feeling some chest pressure sensation, mid chest, no radiation, no other associated symptoms. Allergies No Known Allergies Allergy (Unverified 12/07/23 16:16) - Past Medical/Surgical History Diabetic: No - Social History Alcohol use: No CD- Drugs: No Caffeine use: Yes Place of Residence: Home Review of Systems 10-point ROS is otherwise unremarkable Physical Examination General: Alert, Oriented x3 HEENT: Atraumatic Neck: Supple Respiratory: Clear to auscultation bilaterally Cardiovascular: No edema, Normal S1 S2 Gastrointestinal: Normal bowel sounds Laboratory Data (last 24 hrs) 12/07/23 12/07/23 12/07/23 12:42 12:42 12:42 WBC 7.40 Hgb 15.6 Hct 45.5 Plt Count 282 PT 11.2 INR 1.02 Sodium 138 Potassium 3.5 BUN 21 H Creatinine 1.23 Glucose 107 H Magnesium 2.1 Total Bilirubin 0.5 AST 23 ALT 34 Alkaline Phosphatase 77 - Problems (1) Chest pain Current Visit: Yes Status: Acute Plan: please get exercise stress test in am. (2) HTN (hypertension) Current Visit: Yes Status: Acute Plan: Patient BP is borderline elevated, will continue to monitor and might need to start low dose medications (3) Dehydration Current Visit: Yes Status: Acute Plan: patient creatinine is mildly elevated, encourage hydration.
[2023-12-07] MEDS: NA CHLORIDE 0.9% 1,000 ML IV SCH (18:00)
[2023-12-07 18:38] VITALS: BMI 26.6
--- NOTE | 2023-12-08 07:04 | P.PN ---
Subjective Date of Service: 12/08/23 Chief Complaint: chest pain N.p.o. for stress test today, echo today, per cardiology no reported chest pain Physical Exam General: Alert, In no apparent distress, Oriented x3 HEENT: Atraumatic, Normocephalic Neck: Supple, JVD not distended Respiratory: Clear to auscultation bilaterally, Normal air movement Cardiovascular: Normal pulses, Regular rate/rhythm Capillary refill: <2 Seconds Gastrointestinal: Normal bowel sounds, Soft and benign Integumentary: No rashes, No breakdown Neurological: Normal speech, Normal strength at 5/5 x4 extr Review of Systems per HPI Physical Examination - Vital Signs Temperature: 97.6 F Blood Pressure: 109/56 Pulse: 59 Respirations: 14 Pulse Ox (%): 100 - Studies Laboratory Data (last 24 hrs) 12/07/23 12/07/23 12/07/23 12:42 12:42 12:42 WBC 7.40 Hgb 15.6 Hct 45.5 Plt Count 282 PT 11.2 INR 1.02 Sodium 138 Potassium 3.5 BUN 21 H Creatinine 1.23 Glucose 107 H Magnesium 2.1 Total Bilirubin 0.5 AST 23 ALT 34 Alkaline Phosphatase 77 Assessment And Plan - Plan Assessment plan Chest pain rule out IN Palpitations Dizziness, Cardiology consult, telemetry, Trend troponins, lipid panel, As needed analgesics, Acute kidney injury BUN 21, creatinine 1.23 Gentle IV fluids x 1 L Diet cardiac Full code DVT Lovenox Disposition Home, independent Discharge Plan: Home - Code Status/Comfort Care Code Status: Full Code Critical Care: No Time Spent Managing PTS Care (In Minutes): 35
[2023-12-08 08:49] LABS: Albumin 3.5 g/dL (3.4-5.0); Albumin/Globulin Ratio 1.1 (1.1-1.8); Bilirubin Total 0.5 mg/dL (0.2-1.0); Globulin 3.2 g/dL (2.3-3.5); Magnesium 2.1 mg/dL (1.6-2.4); Phosphorus 2.8 mg/dL (2.5-4.9); Protein, Total 6.7 g/dL (6.4-8.2)
--- NOTE | 2023-12-08 10:48 | P.DS ---
Admission Date: 12/07/23 Discharge Date: 12/08/23 Hospital Course: Pt seen and examined. I Agree with note by the TECHNOLOGY INTERN. NM stress test is unremarkable. Echo is unremarkable. Will add low dose amlodipine. Ok to discharge pt. Follow up Cardiology in clinic. <Elie Lange - Last Filed: 12/08/23 12:39> Admission Date: 12/07/23 Discharge Date: 12/08/23 Reason for Admission: chest pain Brief History of Present Illness: 38-year-old male with no significant past medical history presents to the emergency room with chest pains, palpitations. 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 He reports feeling palpitations, lightheaded over the past 2 to 3 weeks nothing, exacerbate symptoms, nothing makes it better, nothing makes it worse better symptoms usually resolve by themselves, with rest. No reported history of hypertension, hyperlipidemia, diabetes, no prior cardiac testing. No use of drugs or alcohol. No reported recent infection, fever, nausea vomiting diarrhea. Plan to admit for palpitations, dizziness. Cardiology to consult. EKG normal sinus rhythm rate 67, no ST elevation. Vital signs 149 / 87; Pulse 69; Resp 18; Temp 98; Pulse Ox 100% on R/A; Weight 88.45 kg; Height mb9 6 ft. 0 in. ; Pain 0/10; Physical Exam General: Alert, In no apparent distress, Oriented x3 HEENT: Atraumatic, Normocephalic Neck: Supple, JVD not distended Respiratory: Clear to auscultation bilaterally, Normal air movement Cardiovascular: Normal pulses, Regular rate/rhythm Capillary refill: <2 Seconds Gastrointestinal: Normal bowel sounds, Soft and benign Integumentary: No rashes, No breakdown Neurological: Normal speech, Normal strength at 5/5 x4 extr Hospital Course: 38 year-old male patient presented with chest pain. serial troponin were negative. He was evaluated by cardiology, underwent exercise stress test, echo Condition improved with iv fluids, prn ananglesics, Patient tolerating diet, stable for discharge to home with follow-up appointment with primary care physician, follow up with nephrology after discharge. PROBLEM: chest pain, negative serial troponin mildly elevated creatinine-encourage hydration mildly elevated hypertension-start low low bp meds echo cardiogram normal exercise stress test normal Continue home medicines as previously prescribed GOAL: Clear understanding of disease process INSTRUCTIONS: Physician Discharge Instructions -Follow-up with PCP in 1 to 2 weeks -Please call if any questions regarding hospital stay -Please call nursing station at [phone] if any nursing or medication questions -Return to the emergency room if symptoms worsen Diet: ADA, low sodium Activity: Fall precautions <Augustina Gant - Last Filed: 12/08/23 13:20> Disposition: ROUTINE DISCHARGE Discharge Condition: FAIR Vital Signs/Physical Exam: Temp Pulse Resp BP Pulse Ox 97.8 F 73 18 123/66 99 12/08/23 12:00 12/08/23 12:00 12/08/23 12:00 12/08/23 12:00 12/08/23 12:00 Laboratory Data at Discharge: WBC 7.40 thou/uL (4.3-10.9) 12/07/23 12:42 Hgb 15.6 g/dL (13.6-17.9) 12/07/23 12:42 Hct 45.5 % (39.6-49.0) 12/07/23 12:42 Plt Count 282 thou/uL (152-406) 12/07/23 12:42 PT 11.2 SECONDS (9.5-12.5) 12/07/23 12:42 INR 1.02 12/07/23 12:42 Sodium 142 mEq/L (136-145) 12/08/23 08:13 Potassium 4.0 mEq/L (3.5-5.1) D 12/08/23 08:13 BUN 18 mg/dL (7-18) 12/08/23 08:13 Creatinine 1.17 mg/dL (0.70-1.30) 12/08/23 08:13 Glucose 99 mg/dL (74-106) 12/08/23 08:13 Phosphorus 2.8 mg/dL (2.5-4.9) 12/08/23 08:13 Magnesium 2.1 mg/dL (1.6-2.4) 12/08/23 08:13 Total Bilirubin 0.5 mg/dL (0.2-1.0) 12/08/23 08:13 AST 18 U/L (15-37) 12/08/23 08:13 ALT 29 U/L (16-61) 12/08/23 08:13 Alkaline Phosphatase 64 U/L (45-117) 12/08/23 08:13 <Elie Lange - Last Filed: 12/08/23 12:39> Vital Signs/Physical Exam: Temp Pulse Resp BP Pulse Ox 97.9 F 68 17 133/65 99 12/08/23 08:00 12/08/23 08:00 12/08/23 08:00 12/08/23 08:00 12/08/23 08:00 Laboratory Data at Discharge: WBC 7.40 thou/uL (4.3-10.9) 12/07/23 12:42 Hgb 15.6 g/dL (13.6-17.9) 12/07/23 12:42 Hct 45.5 % (39.6-49.0) 12/07/23 12:42 Plt Count 282 thou/uL (152-406) 12/07/23 12:42 PT 11.2 SECONDS (9.5-12.5) 12/07/23 12:42 INR 1.02 12/07/23 12:42 Sodium 142 mEq/L (136-145) 12/08/23 08:13 Potassium 4.0 mEq/L (3.5-5.1) D 12/08/23 08:13 BUN 18 mg/dL (7-18) 12/08/23 08:13 Creatinine 1.17 mg/dL (0.70-1.30) 12/08/23 08:13 Glucose 99 mg/dL (74-106) 12/08/23 08:13 Phosphorus 2.8 mg/dL (2.5-4.9) 12/08/23 08:13 Magnesium 2.1 mg/dL (1.6-2.4) 12/08/23 08:13 Total Bilirubin 0.5 mg/dL (0.2-1.0) 12/08/23 08:13 AST 18 U/L (15-37) 12/08/23 08:13 ALT 29 U/L (16-61) 12/08/23 08:13 Alkaline Phosphatase 64 U/L (45-117) 12/08/23 08:13 <Augustina Gant - Last Filed: 12/08/23 13:20> <Elie Lange - Last Filed: 12/08/23 12:39> Diet: AHA Time spent managing pt's care (in minutes): 55 <Augustina Gant - Last Filed: 12/08/23 13:20> Home Medications: Amlodipine [Norvasc*] 2.5 mg PO DAILY 30 Days #30 tab 12/08/23 New Medications: Amlodipine [Norvasc*] 2.5 mg PO DAILY 30 Days #30 tab Physician Discharge Instructions: 38 year-old male patient presented with chest pain. serial troponin were negative. He was evaluated by cardiology, underwent exercise stress test, echo Condition improved with iv fluids, prn ananglesics, Patient tolerating diet, stable for discharge to home with follow-up appointment with primary care physician, follow up with nephrology after discharge. PROBLEM: chest pain, negative serial troponin mild elevated creatinine- encouarage hydration mild elevated blood pressure, start amloipine 5 mg daily echo cardiogram normal exercise stress test normal Continue home medicines as previously prescribed GOAL: Clear understanding of disease process INSTRUCTIONS: Physician Discharge Instructions -Follow-up with PCP in 1 to 2 weeks -Please call if any questions regarding hospital stay -Please call nursing station at [phone] if any nursing or medication questions -Return to the emergency room if symptoms worsen Diet: ADA, low sodium Activity: Fall precautions Followup: Elaine Ball MD [ACTIVE - CAN ADMIT] - 1-2 Weeks (call to schedule an appointment) NONE,NONE [Primary Care Provider] - 1-2 Weeks (call to schedule an appointment)
[2023-12-08] MEDS: AMLODIPINE 5 MG TAB PO SCH (11:07)
[2023-12-08] MEDS: AMLODIPINE 2.5 MG TAB PO SCH (11:51)
[2023-12-08 12:01] VITALS: BP 123/66
[2023-12-08 12:28] VITALS: TEMP 97.8; O2SAT 73
--- NOTE | 2023-12-08 13:20 | TREADMILL ---
70% H.R.: 127 85% H.R.: 154 90% H.R.: 163 100% H.R.: 181 DX: CHEST PAIN Date of Study: 12/08/2023 Ht: 6' 0 " Wt: 196 lb 3.383 oz Consulting Physician: MERLY MEDICATIONS: TYLENOL, MORPHINE, ZOFRAN HISTORY: 38 YEAR OLD MALE WITH COMPLAINTS OF FEELING WEIRD. HISTORY OF ANXIETY. PATIENT DENIES CHEST PAIN BUT IS EXPERIENCING SOME CHEST PRESSURE. PATIENT STATES NO KNOWN DRUG ALLERGY. PHYSICIAL EXAMINATION: RESTING B.P.: 110/73 RESTING H.R.: 61 RESTING EKG: NORMAL SINUS RHYTHM PROTOCOL: ELLA ROUTINE EXERCISE TIME: 9:19 MAXIMUM HEART RATE: 167 192 % OF PREDICTED B.P. AT PEAK STRESS: 150/78 H.R. AT 1 MINUTE POST EXERCISE: 167 IMPRESSION: TREADMILL STRESS TEST PERFORMED. PATIENT TOLERATED PROCEDURE WELL. PATIENT DENIES CHEST PAIN. NO SUPRAVENTRICULAR TACHYCARDIA, VENTRICULAR TACYHYCARDIA, PREMATURE ATRIAL COMPLEXES, PREMATURE VENTRICULAR COMPLEXES NOTED. NO SIGNIFICANT ST-T WAVE CHANGES. NEGATIVE STRESS TEST.
--- NOTE | 2023-12-08 14:07 | ECHO ---
HEIGHT: 6 ft 0 in WEIGHT: 196 lb 3.383 oz DATE OF STUDY: 12/08/[address]: Augustina Gant 2-DIMENSIONAL: YES M.MODE: YES DOPPLER: YES COLOR FLOW: YES TDS: PORTABLE: YES DEFINITY: BUBBLE STUDY: DIAGNOSIS: CHEST PAIN CARDIAC HISTORY: CATHERIZATION: SURGERY: PROSTHETIC VALVE: PACEMAKER: MEASUREMENTS (cm) DIASTOLIC (NORMALS) SYSTOLIC (NORMALS) IVSd 0.9 (0.6-1.2) LA Diam 3.6 (1.9-4.0) LVEF 6% LVIDd 4.3 (3.5-5.7) LVIDs 2.8 (2.0-3.5) %FS 36% LVPWd 1.0 (0.6-1.2) Ao Diam 3.5 (2.0-3.7) 2 DIMENSIONAL ASSESSMENT: RIGHT ATRIUM: NORMAL LEFT ATRIUM: NORMAL RIGHT VENTRICLE: NORMAL LEFT VENTRICLE: NORMAL TRICUSPID VALVE: NORMAL MITRAL VALVE: NORMAL PULMONIC VALVE: NORMAL AORTIC VALVE: NORMAL PERICARDIAL EFFUSION: NONE AORTIC ROOT: NORMAL LEFT VENTRICULAR WALL MOTION: NORMAL DOPPLER/COLOR FLOW: NORMAL COMMENTS: 1. NORMAL LEFT VENTRICULAR SYSTOLIC AND DIASTOLIC FUNCTION 2. NORMAL WALL MOTION TECHNOLOGIST: FRANK DUNNE
[2023-12-09] MEDS ORDERED: AMLODIPINE 2.5 MG TAB PO SCH (09:00)
--- NOTE | 2023-12-11 14:32 | EKG ---
Test Date: 2023-12-07 Test Time: 12:02:46 Butt Maker: JEANA MEASUREMENT RESULTS: Intervals: Rate: 67 [place]: 166 QRSD: 112 QT: 374 QTc: 395 [place]: P: 47 [place]: 166 QRS: 91 T: 67 INTERPRETIVE STATEMENTS: Normal sinus rhythm Normal ECG Compared to ECG 09/06/2022 22:14:30 Sinus arrhythmia no longer present Electronically Signed On 12-11-23 14:18:07 CDT by Jesus Duke
== END 2023-12-08 12:37 | disposition home or self-care (01) ==
LOC: ER 12:27 → ERHOLD 15:47 → 4TH 17:40
PROVIDERS: ADMIT Hospitalist; ATTEND Hospitalist
DX: R07.9 Chest pain, unspecified (principal); R00.2 Palpitations; R00.1 Bradycardia, unspecified; R42 Dizziness and giddiness; N17.9 Acute kidney failure, unspecified; E86.0 Dehydration; I10 Essential (primary) hypertension; Z82.49 Family history of ischemic heart disease and other diseases of the circulatory system
CPT/HCPCS: 36415; 71045; 80048; 80053; 80076; 80307; 81001; 83735; 83880; 84100; 84443; 84484; 85025; 85610; 93005; 93017; 93306; 96372; 96374; 99285; G0378; J7030; J7040